=== PATIENT | male | born 1990 | race Caucasian/White ===

== ENCOUNTER 2019-03-05 13:39 | Emergency (ER) | payer SELFPAY ==
[2019-03-05 13:50] VITALS: BP 112/67; PULSE 94; BMI 22.8
[2019-03-05] MEDS ORDERED: ACETAMINOPHEN 1000 MG/100 ML VIAL (NON FORMULARY) IVPB ONE ×2 (13:50→20:18)
--- NOTE | 2019-03-05 13:50 | PDOC ---
Rapid Medical Evaluation Time Seen by Provider: 03/05/19 13:47 Medical Evaluation: 03/05/19 13:47 nausea, fever, abdominal pain x 4 days. 2x episodes of vomiting. last week began, got better, then began again 4 days ago. febrile to 104F epigastric and LLQ tenderness
[2019-03-05] MEDS ORDERED: ACETAMINOPHEN 500 MG TABLET (FP) PO ONE (13:51)
[2019-03-05 15:04] LABS: BASO % 0.3 % (0-2.0); HEMATOCRIT 39.3 % (35.4-49); HEMOGLOBIN 13.5 GM/dL (11.7-16.9); LYMPH % 26.5 % (8-40); MCH 29.7 pg (25.7-33.7); MCHC 34.4 g/dl (32.0-35.9); MEAN CELL VOLUME 86.3 fl (80-96); MEAN PLT VOLUME 9.1 fl (7.5-11.1); MONO % 7.7 % (3.8-10.2); NEUT % 65.5 % (42.8-82.8); PLATELET COUNT 79 K/MM3 (134-434); RBC 4.56 M/mm3 (4.00-5.60); RDW 12.6 % (11.9-15.9); WHITE BLOOD COUNT 3.1 K/mm3 (4.0-10.0)
[2019-03-05 15:05] LABS: PH,URINE 8.5 (5.0-8.0); URINE APPEARANCE CLEAR; URINE BILIRUBIN NEGATIVE (NEGATIVE); URINE COLOR YELLOW; URINE GLUCOSE (UA) NEGATIVE (NEGATIVE); URINE KETONE NEGATIVE (NEGATIVE); URINE LEUK ESTERASE NEGATIVE (NEGATIVE); URINE NITRITE NEGATIVE (NEGATIVE); URINE PROTEIN TRACE (NEGATIVE); URINE UROBILINOGEN 0.2 mg/dL (0.2-1.0)
[2019-03-05 15:26] LABS: ALBUMIN 3.8 g/dl (3.4-5.0); BILIRUBIN,TOTAL 0.5 mg/dL (0.2-1); BLOOD UREA NITROGEN 17.3 mg/dL (7-18); CALCIUM 8.1 mg/dL (8.5-10.1); CREATININE 1.4 mg/dL (0.55-1.3); POTASSIUM 4.3 mmol/L (3.5-5.1)
[2019-03-05 16:55] VITALS: TEMP 99.1
[2019-03-05] MEDS ORDERED: SODIUM CHLORIDE 1,000 ML IV STA (17:28)
--- NOTE | 2019-03-05 18:21 | EKG ---
Test Reason : Blood Pressure : / mmHG Vent. Rate : 087 BPM Atrial Rate : 087 BPM P-R Int : 132 ms QRS Dur : 086 ms QT Int : 330 ms P-R-T Axes : 063 -24 011 degrees QTc Int : 397 ms NORMAL SINUS RHYTHM NORMAL ECG NO PREVIOUS ECGS AVAILABLE Confirmed by NERY YOUNG MD ([id number]) on 03/05/2019 6:21:29 PM Referred By: Confirmed By:NERY YOUNG MD
--- NOTE | 2019-03-05 18:38 | PDOC ---
History of Present Illness - General Chief Complaint: SIRS, Suspected/Possible Stated Complaint: NAUSEOUS/ FEVER Time Seen by Provider: 03/05/19 13:47 History Source: Patient Exam Limitations: No Limitations - History of Present Illness Travel History: No Initial Comments: 03/05/19 18:14 28-year-old male presents to ED with complaints of epigastric pain for the past 4 days intimately now with fever since yesterday. Patient states has had no change in weight, recent travel, recent illness. Patient also denies sore throat , cough, chest pain urinary or bowel complaints. She denies medical history alcohol use, or drug use Timing/Duration: reports: getting worse, intermittent Quality: reports: mild, moderate, sharpness Abdominal Pain Onset Location: reports: epigastric Pain Radiation: reports: LLQ Activities at Onset: reports: none Aggravating Factors: improves with: None Alleviating Factors: improves with: None Past History - Travel Traveled outside of the country in the last 30 days: No Close contact w/someone who was outside of country & ill: No - Past Medical History Allergies/Adverse Reactions: Allergies Allergy/AdvReac Type Severity Reaction Status Date / Time No Known Allergies Allergy Verified 03/05/19 13:52 COPD: No - Immunization History Immunization Up to Date: Yes - Psycho Social/Smoking Cessation Hx Smoking History: Unknown if ever smoked Have you smoked in the past 12 months: No Information on smoking cessation initiated: No Hx Alcohol Use: No Drug/Substance Use Hx: No Patient Lives Alone: No Review of Systems - Review of Systems Able to Perform ROS?: Yes Constitutional: Yes: Fever, Weakness HEENTM: No: Symptoms Reported Respiratory: No: Symptoms reported Cardiac (ROS): No: Symptoms Reported ABD/GI: Yes: Abdominal cramping (epigastric) : No: Symptoms Reported Integumentary: No: Symptoms Reported Neurological: No: Symptoms reported Hematologic/Lymphatic: No: Symptoms Reported *Physical Exam - Vital Signs Last Vital Signs Temp Pulse Resp BP Pulse Ox 99.1 F 94 H 16 112/67 98 03/05/19 16:54 03/05/19 13:48 03/05/19 13:48 03/05/19 13:48 03/05/19 13:48 - Physical Exam General Appearance: Yes: Nourished, Appropriately Dressed. No: Apparent Distress HEENT: positive: TMs Normal, Pharynx Normal. negative: Pale Conjunctivae Neck: positive: Normal Thyroid, Supple Respiratory/Chest: positive: Lungs Clear, Normal Breath Sounds. negative: Respiratory Distress, Accessory Muscle Use Cardiovascular: positive: Regular Rhythm, Tachycardia. negative: Murmur Gastrointestinal/Abdominal: positive: Soft, Tenderness (epigastric left upper quadrant) Extremity: positive: Normal Inspection Integumentary: positive: Normal Color, Warm, Moist Neurologic: positive: Motor Strength 5/5 (ambulatory) ED Treatment Course - LABORATORY CBC & Chemistry Diagram: 03/05/19 14:26 03/05/19 19:30 - ADDITIONAL ORDERS Additional order review: Laboratory Results 03/05/19 03/05/19 03/05/19 14:26 14:26 14:26 Sodium 129 L Potassium 4.3 Chloride 91 L Carbon Dioxide 30 Anion Gap 8 BUN 17.3 Creatinine 1.4 H Est GFR (CKD-EPI)AfAm 78.13 Est GFR (CKD-EPI)NonAf 67.42 Random Glucose 122 H Lactic Acid 0.6 Calcium 8.1 L Total Bilirubin 0.5 AST 38 H ALT 32 Alkaline Phosphatase 54 Total Protein 7.0 Albumin 3.8 Lipase 200 Urine Color Yellow Urine Appearance Clear Urine pH 8.5 H Ur Specific [place] 1.020 Urine Protein Trace Urine Glucose (UA) Negative Urine Ketones Negative Urine Blood Negative Urine Nitrite Negative Urine Bilirubin Negative Urine Urobilinogen 0.2 Ur Leukocyte Esterase Negative 03/05/19 14:26 RBC 4.56 MCV 86.3 MCHC 34.4 RDW 12.6 MPV 9.1 Neutrophils % 65.5 Lymphocytes % 26.5 Monocytes % 7.7 Eosinophils % 0.0 Basophils % 0.3 - RADIOLOGY Radiology Studies Ordered: Category Date Time Status ABDOMEN & PELVIS CT W/O CONTR [CT] Stat CT Scan 03/05/19 18:30 Ordered - Medications Given in the ED: ED Medications Discontinued Medications Generic Name Dose Route Start Last Admin Trade Name Freq PRN Reason Stop Dose Admin Acetaminophen 1,000 mg 03/05/19 13:50 03/05/19 13:56 Ofirmev Injection - IVPB 03/05/19 13:51 Not Given ONCE ONE Acetaminophen 1,000 mg 03/05/19 13:51 03/05/19 13:55 Tylenol - PO 03/05/19 13:52 1,000 mg ONCE ONE Administration Medical Decision Making - Medical Decision Making 03/05/19 18:39 Chief complaint: Fever, chills, epigastric pain intermittently for the past 4 days patient denies medical history Exam patient febrile tachycardic with epigastric and left upper quadrant pain on my exam plan patient had labs ordered from [facility]. Patient ordered for rapid strep and IV fluids secondary to hyponatremia. Patient also ordered for HIV secondary to low WBC and platelet count 03/05/19 18:41 Laboratory Tests 03/05/19 03/05/19 03/05/19 14:26 14:26 14:26 WBC 3.1 L Hgb 13.5 Hct 39.3 Plt Count 79 L Sodium 129 L Potassium 4.3 Chloride 91 L Carbon Dioxide 30 Anion Gap 8 BUN 17.3 Creatinine 1.4 H Random Glucose 122 H Lactic Acid 0.6 Calcium 8.1 L Total Bilirubin 0.5 AST 38 H Urine pH Urine Ketones Urine Bilirubin Ur Leukocyte Esterase Group A Strep Rapid 03/05/19 03/05/19 14:26 17:30 WBC Hgb Hct Plt Count Sodium Potassium Chloride Carbon Dioxide Anion Gap BUN Creatinine Random Glucose Lactic Acid Calcium Total Bilirubin AST Urine pH 8.5 H Urine Ketones Negative Urine Bilirubin Negative Ur Leukocyte Esterase Negative Group A Strep Rapid Negative Patient ordered for abdominal CT, EBV, and HIV testing Discharge - Discharge Information Problems reviewed: Yes Clinical Impression/Diagnosis: Acute viral syndrome Abdominal pain Qualifiers: Abdominal location: upper abdomen, unspecified Qualified Code(s): R10.10 - Upper abdominal pain, unspecified Condition: Improved Disposition: HOME - Follow up/Referral - Patient Discharge Instructions Patient Printed Discharge Instructions: DI for Fever (Symptom) -- Adult Additional Instructions: lo ms probable es que tengas mono. Qian resultados estn pendientes. Le llamaremos si qian resultados son positivos. Es importante que tome Tylenol e ibuprofeno cada 6 horas segn sea necesario para la fiebre y el dolor. Beber mucho lquido. Puedes volver a la escuela o al trabajo cuando te sientas mejor. [place] es posible que deba evitar los deportes u otras actividades fsicas francisco al menos un mes. [place] se debe a que mono puede hacer que 1 de los rganos de garcia cuerpo se agrande ms de lo que debera ser. Veronica rgano se llama bazo. Cuando es demasiado jairo, puede daarse francisco la actividad fsica. - Post Discharge Activity Work/Back to School Note: Back to Work
[2019-03-05] MEDS ORDERED: ONDANSETRON 4 MG/2 ML VIAL IVPUSH ONE (19:30)
[2019-03-05] MEDS ORDERED: FAMOTIDINE 20 MG/50 ML IVPB 20 MG/50 ML MG IVPB ONE ×2 (19:30→19:51)
--- NOTE | 2019-03-05 19:31 | PDOC ---
*Physical Exam - Vital Signs Last Vital Signs Temp Pulse Resp BP Pulse Ox 99.1 F 94 H 16 112/67 98 03/05/19 16:54 03/05/19 13:48 03/05/19 13:48 03/05/19 13:48 03/05/19 13:48 - Physical Exam General Appearance: Yes: Appropriately Dressed Respiratory/Chest: positive: Lungs Clear, Normal Breath Sounds Gastrointestinal/Abdominal: positive: Normal Bowel Sounds, Tender (RUQ, LUQ and epigastric area) ED Treatment Course - LABORATORY CBC & Chemistry Diagram: 03/05/19 14:26 03/05/19 14:26 - ADDITIONAL ORDERS Additional order review: Laboratory Results 03/05/19 03/05/19 03/05/19 14:26 14:26 14:26 Sodium 129 L Potassium 4.3 Chloride 91 L Carbon Dioxide 30 Anion Gap 8 BUN 17.3 Creatinine 1.4 H Est GFR (CKD-EPI)AfAm 78.13 Est GFR (CKD-EPI)NonAf 67.42 Random Glucose 122 H Lactic Acid 0.6 Calcium 8.1 L Total Bilirubin 0.5 AST 38 H ALT 32 Alkaline Phosphatase 54 Total Protein 7.0 Albumin 3.8 Lipase 200 Urine Color Yellow Urine Appearance Clear Urine pH 8.5 H Ur Specific [place] 1.020 Urine Protein Trace Urine Glucose (UA) Negative Urine Ketones Negative Urine Blood Negative Urine Nitrite Negative Urine Bilirubin Negative Urine Urobilinogen 0.2 Ur Leukocyte Esterase Negative 03/05/19 14:26 RBC 4.56 MCV 86.3 MCHC 34.4 RDW 12.6 MPV 9.1 Neutrophils % 65.5 Lymphocytes % 26.5 Monocytes % 7.7 Eosinophils % 0.0 Basophils % 0.3 - Medications Given in the ED: ED Medications Discontinued Medications Generic Name Dose Route Start Last Admin Trade Name Freq PRN Reason Stop Dose Admin Acetaminophen 1,000 mg 03/05/19 13:50 03/05/19 13:56 Ofirmev Injection - IVPB 03/05/19 13:51 Not Given ONCE ONE Acetaminophen 1,000 mg 03/05/19 13:51 03/05/19 13:55 Tylenol - PO 03/05/19 13:52 1,000 mg ONCE ONE Administration Medical Decision Making - Medical Decision Making 03/05/19 19:48 epigastric pain. patient reports vomiting once this morning. now with nausea 03/05/19 21:42 slightly enlarged spleen, LFTs slight elevation. likely viral process. Maury spot / EBV pending. 03/05/19 21:57 discharge instruction given with [facility]. *DC/Admit/Observation/Transfer Diagnosis at time of Disposition: Acute viral syndrome Abdominal pain Qualifiers: Abdominal location: upper abdomen, unspecified Qualified Code(s): R10.10 - Upper abdominal pain, unspecified - Discharge Dispostion Disposition: HOME - Referrals - Patient Instructions Printed Discharge Instructions: DI for Fever (Symptom) -- Adult Additional Instructions: lo ms probable es que tengas mono. Qian resultados estn pendientes. Le llamaremos si qian resultados son positivos. Es importante que tome Tylenol e ibuprofeno cada 6 horas segn sea necesario para la fiebre y el dolor. Beber mucho lquido. Puedes volver a la escuela o al trabajo cuando te sientas mejor. [place] es posible que deba evitar los deportes u otras actividades fsicas franc[place] al menos un mes. [place] se debe a que mono puede hacer que 1 de los rganos de garcia cuerpo se agrande ms de lo que debera ser. Veronica rgano se llama bazo. Cuando es demasiado jairo, puede daarse francisco la actividad fsica. - Post Discharge Activity Forms/Work/School Notes: Back to Work
[2019-03-05] MEDS ORDERED: ONDANSETRON 4 MG/2 ML VIAL ONE (19:51)
[2019-03-05] MEDS ORDERED: SODIUM CHLORIDE 0.9% 500 ML INFUS.BAG IV ONE (19:59)
[2019-03-05 20:19] LABS: INR 1.08 (0.83-1.09); PROTHROMBIN TIME (PATIENT) 12.8 SEC (9.7-13.0)
[2019-03-05 20:21] LABS: ACTIVATED PTT 35.9 SECONDS (25.2-36.5)
[2019-03-05 20:25] LABS: MAGNESIUM 2.7 mg/dL (1.8-2.4)
[2019-03-05] MEDS ORDERED: ACETAMINOPHEN INJECTION 100 ML IVPB ONE (21:30)
[2019-03-08 12:02] LABS: BILIRUBIN,TOTAL 0.6 mg/dL (0.2-1); BLOOD UREA NITROGEN 18.5 mg/dL (7-18); CALCIUM 8.5 mg/dL (8.5-10.1); CREATININE 1.5 mg/dL (0.55-1.3); POTASSIUM 4.1 mmol/L (3.5-5.1); TOT PROT 7.5 g/dl (6.4-8.2)
[2019-03-10 14:09] LABS: EPSTEIN BARR ANTIBODY IgM 42.6 U/mL (0.0-35.9)
== END 2019-03-05 23:00 | disposition home or self-care (01) ==
LOC: JER 13:39
PROC: 3E0337Z Introduction of Electrolytic and Water Balance Substance into Peripheral Vein, Percutaneous Approach (ICD-10-PCS; principal; 2019-03-05)
PROC: 3E033GC Introduction of Other Therapeutic Substance into Peripheral Vein, Percutaneous Approach (ICD-10-PCS; 2019-03-05)
PROC: 3E033NZ Introduction of Analgesics, Hypnotics, Sedatives into Peripheral Vein, Percutaneous Approach (ICD-10-PCS; 2019-03-05)
PROC: 3E033GC Introduction of Other Therapeutic Substance into Peripheral Vein, Percutaneous Approach (ICD-10-PCS; 2019-03-05)
DX: B34.9 Viral infection, unspecified (principal)
CPT/HCPCS: 36415; 71045-TC-FY; 74177-TC; 76705-TC; 80053; 81003; 83605; 83690; 83735; 85025; 85610; 85730; 86308; 86664; 86665; 87040; 87070; 87086; 87389; 87880; 93005; 93010; 96361; 96365; 96375; 99282-25; J0131; J7030

== ENCOUNTER 2020-08-12 04:13 | Day surgery (SDC) | payer OTHER ==
[2020-08-12 10:07] VITALS: BMI 23.1
[2020-08-12 11:42] VITALS: BP 130/79; PULSE 71; TEMP 97
== END 2020-08-12 11:50 | disposition home or self-care (01) ==
LOC: JASU-ENDO 04:13
PROVIDERS: ATTEND Internal Medicine Gastroenterology
PROC: 0DB78ZX Excision of Stomach, Pylorus, Via Natural or Artificial Opening Endoscopic, Diagnostic (ICD-10-PCS; principal; 2020-08-12 10:30)
DX: K44.9 Diaphragmatic hernia without obstruction or gangrene (principal); K29.70 Gastritis, unspecified, without bleeding; K31.89 Other diseases of stomach and duodenum; B96.81 Helicobacter pylori [H. pylori] as the cause of diseases classified elsewhere
CPT/HCPCS: 88305-TC; 88342-TC

== ENCOUNTER 2020-08-19 04:34 | Day surgery (SDC) | payer OTHER ==
[2020-08-19 08:50] VITALS: BMI 23.8
[2020-08-19 09:30] VITALS: TEMP 97.3
[2020-08-19 10:24] VITALS: BP 116/77; PULSE 66
== END 2020-08-19 10:27 | disposition home or self-care (01) ==
LOC: JASU-ENDO 04:34
PROVIDERS: ATTEND Internal Medicine Gastroenterology
PROC: 0DJD8ZZ Inspection of Lower Intestinal Tract, Via Natural or Artificial Opening Endoscopic (ICD-10-PCS; principal; 2020-08-19 09:00)
DX: K64.8 Other hemorrhoids (principal); K64.4 Residual hemorrhoidal skin tags; K56.2 Volvulus

== ENCOUNTER 2023-03-19 13:57 | Emergency (ER) | payer OTHER ==
[2023-03-19 14:09] VITALS: BP 141/80; PULSE 68; RESP 18; TEMP 98; BMI 25.7
[2023-03-19] MEDS ORDERED: ACETAMINOPHEN 500 MG TABLET (FP) PO ONE (15:15)
[2023-03-19] MEDS ORDERED: KETOROLAC TROMETHAMINE 30 MG/1 ML VIAL IM ONE (15:15)
[2023-03-19] MEDS ORDERED: CYCLOBENZAPRINE HCL 10 MG TABLET (FP) PO ONE (15:15)
[2023-03-19] MEDS ORDERED: CYCLOBENZAPRINE HCL 10 MG TABLET (FP) ONE (15:34)
[2023-03-19] MEDS ORDERED: ACETAMINOPHEN 500 MG TABLET (FP) ONE (15:35)
[2023-03-19] MEDS ORDERED: KETOROLAC TROMETHAMINE 30 MG/1 ML VIAL ONE (15:35)
== END 2023-03-19 17:19 | disposition home or self-care (01) ==
LOC: JER 13:57
PROC: 3E0233Z Introduction of Anti-inflammatory into Muscle, Percutaneous Approach (ICD-10-PCS; principal; 2023-03-19)
DX: M54.6 Pain in thoracic spine (principal); M79.662 Pain in left lower leg; S80.12XA Contusion of left lower leg, initial encounter; R42 Dizziness and giddiness; V43.03XA Car driver injured in collision with pick-up truck in nontraffic accident, initial encounter; Y93.I9 Activity, other involving external motion
CPT/HCPCS: 73590-TC-LT-FY; 99284-25